=== PATIENT | female | born 1990 | race Caucasian/White ===

== ENCOUNTER 2018-08-25 13:11 | Emergency (ER) | payer MEDICAID, SELFPAY ==
[2018-08-25 14:53] LABS: #Eosinphils 0.1 thou/uL (0.0-0.7); #Lymphocytes 1.5 thou/uL (1.20-3.40); #Monocytes 0.4 thou/uL (0.11-0.59); #Neutrophils 5.9 thou/uL (1.40-6.50); %Basophils 0.6 % (0.0-1.0); %Eosinophils 0.8 % (0.0-10.0); %Lymphocytes 18.7 % (21.0-51.0); %Monocytes 4.6 % (0.0-10.0); %Neutrophils 75.2 % (42.0-75.0); Hemoglobin 14.9 g/dL (12.0-16.0); Mean Corpuscular HGB CONC 34.2 g/dL (32.0-36.0); Mean Corpuscular Hemoglobin 32.9 pg (27.0-31.0); Mean Platelet Volume 8.4 fL (7.4-10.4); Platelet Count 323 thou/uL (130-400); RBC Distribution Width 10.9 % (11.5-14.5); Red Blood Cell (RBC) Count 4.54 mill/uL (4.20-5.40); White Blood Cell (WBC) Count 7.8 thou/uL (4.8-10.8)
--- NOTE | 2018-08-25 15:09 | RAD ---
PA AND LATERAL VIEWS OF THE CHEST: 08/25/18 HISTORY: Cough. FINDINGS: The cardiomediastinum is normal. Lungs are well expanded without focal areas of consolidation, pneumo thoraces or pleural effusions. No acute osseous abnormalities are seen. IMPRESSION: No radiographic evidence of acute cardiopulmonary process. POS: [facility]
[2018-08-25 15:11] LABS: ALT (SGPT) 11 U/L (8-55); AST (SGOT) 13 U/L (5-34); Albumin 4.4 g/dL (3.5-5.0); Alkaline Phosphatase 68 U/L (40-150); Anion Gap 12 mmol/L (10-20); BUN (Urea Nitrogen) 9 mg/dL (7.0-18.7); Bilirubin, Total 0.7 mg/dL (0.2-1.2); Calc. Creatinine Clearance 0 mL/min (70-130); Calcium 9.6 mg/dL (7.8-10.44); Carbon Dioxide 23 mmol/L (22-29); Chloride 107 mmol/L (98-107); Estimated GFR-MDRD Greater than 90; Glucose 97 mg/dL (70-105); Lipase 20 U/L (8-78); Protein, Total 7.4 g/dL (6.0-8.3); Sodium 138 mmol/L (136-145)
[2018-08-25] MEDS ORDERED: Morphine 4 MG/ML VIAL ONE (15:36)
[2018-08-25] MEDS ORDERED: Ondansetron PF 4 MG/2 ML Vial ONE (15:36)
[2018-08-25 15:44] LABS: Bilirubin Negative (Negative); Blood, Urine Negative (Negative); Clarity CLEAR (Clear); Glucose, Urine (Dipstick) Negative (Negative); Leukocyte Negative (Negative); Nitrite Negative (Negative); Protein, Urine (Dipstick) Negative (Neg-Trace); Specific Gravity, Urine 1.019 (1.002-1.036); Urobilinogen 0.2 mg/dL (0.2-1.0)
[2018-08-25 15:46] LABS: Pregnancy Test - Urine (BHCG) Negative (Negative); Pregu Control Background? CLEAR/WHITE (CLR/WHITE); Pregu Control Bar Appear? YES (CONTROL BAR); Specific Gravity 1.019 (1.002-1.036)
--- NOTE | 2018-08-25 15:49 | ULT ---
ULTRASOUND ABDOMEN LIMITED: (RIGHT UPPER QUADRANT) HISTORY: 28-year-old female with right upper quadrant abdominal pain. FINDINGS: The gallbladder has normal wall thickness and has no evidence of gallstones or sludge. The hepatic e chogenicity is normal. The right kidney has normal echogenicity and has no hydronephrosis. The panc reas is visualized, although ultrasound is relatively insensitive for pancreatic pathology compared t o CT and MRI. There is no biliary dilation. The common duct caliber is 4 mm. IMPRESSION: Normal. catrina POS: [facility]
[2018-08-25] MEDS ORDERED: HYDROcodone/Acetaminophen 5/325 mg Tablet ONE (16:10)
== END 2018-08-25 16:54 | disposition home or self-care (01) ==
LOC: ERS 13:11
DX: R10.11 Right upper quadrant pain (principal); R05 Cough; Z87.891 Personal history of nicotine dependence
CPT/HCPCS: 36415; 71046; 76705; 80053; 81003; 81025; 83690; 85025; 96361; 96374; 96375; J2270; J2405

== ENCOUNTER 2021-02-26 16:23 | Emergency (ER) | payer OTHER ==
[2021-02-26] MEDS ORDERED: Ketorolac Tromethamine 30 MG/ML VIAL ONE (18:23)
[2021-02-26] MEDS ORDERED: Dexamethasone 4 MG TAB ONE (18:23)
== END 2021-02-26 18:36 | disposition home or self-care (01) ==
LOC: ERS 16:23
DX: M54.2 Cervicalgia (principal); Z79.899 Other long term (current) drug therapy; R20.2 Paresthesia of skin
CPT/HCPCS: 96372; 99283; J1885; J8540

== ENCOUNTER 2021-05-15 12:42 | Outpatient (CLI) | payer OTHER | END 2021-05-15 12:43 | disposition home or self-care (01) | LOC: TBSIIMAG 12:42 | PROVIDERS: ATTEND Psychiatry & Neurology Neurology | DX: M50.90 Cervical disc disorder, unspecified, unspecified cervical region (principal) | CPT/HCPCS: 72141 ==

== ENCOUNTER 2023-01-15 09:13 | Outpatient (CLI) | payer OTHER | END 2023-01-15 09:14 | disposition home or self-care (01) | LOC: RAD 09:13 | PROVIDERS: ATTEND Internal Medicine Critical Care Medicine | DX: R06.00 Dyspnea, unspecified (principal) | CPT/HCPCS: 71046 ==

== ENCOUNTER 2023-10-02 12:11 | Outpatient (CLI) | payer OTHER | END 2023-10-02 12:12 | disposition home or self-care (01) | LOC: SCSMRI 12:11 | PROVIDERS: ATTEND Neurological Surgery | DX: M51.36 Other intervertebral disc degeneration, lumbar region (principal); M50.30 Other cervical disc degeneration, unspecified cervical region; Q05.7 Lumbar spina bifida without hydrocephalus | CPT/HCPCS: 72141; 72148 ==